=== PATIENT | female | born 1990 | race Caucasian/White ===

== ENCOUNTER → 2020-12-13 13:41 | Outpatient (BNVA) | payer BC, SELFPAY | PROVIDERS: Visit Provider Obstetrics & Gynecology | DX: N83.8 Other noninflammatory disorders of ovary, fallopian tube and broad ligament (principal); R10.2 Pelvic and perineal pain | CPT/HCPCS: 76830 ==

== ENCOUNTER 2020-12-15 07:49 | Outpatient (CLI) | payer BC, SELFPAY ==
--- NOTE | 2020-12-15 08:00 | US_ITS ---
WS: [id number] ULTRASOUND LEFT BREAST HISTORY: N63.20 - Unspecified lump in the left breast, unspecified... COMPARISON: 03/27/2018 and 09/13/2014, mammogram 03/27/2018 TECHNIQUE: 2-D and Doppler. Predominantly hypoechoic but heterogeneous nodule in the LEFT breast adjacent to the areolar has slow ly increased in size since 2014 and 2018. This is not typical for a normal lymph node. If this is an abnormal lymph node the normal central fatty hilum is being displaced and the cortex is thickened. Th ere is an additional hypoechoic nodule adjacent to the dominant mass measuring 0.9 x 0.7 x 0.5 cm. Th e adjacent soft tissue structures are being distorted. US/US breast LT complete [id number] IMPRESSION: BI-RADS: 0-Incomplete: Need additional imaging evaluation FOLLOW-UP: See Report Palpable subareolar nodule LEFT breast has slowly increased in size since 2014. This is not typical for benign lymph node. There is now an adjacent small er hypoechoic nodule. Recommend surgical excision of both of the nodules in the LEFT breast adjacent to the areola.
== END 2020-12-15 07:50 | disposition home or self-care (01) ==
PROVIDERS: Visit Provider Obstetrics & Gynecology
DX: N63.42 Unspecified lump in left breast, subareolar (principal)
CPT/HCPCS: 76641

== ENCOUNTER 2020-12-26 07:52 | Outpatient (CLI) | payer BC, SELFPAY ==
--- NOTE | 2020-12-26 07:55 | MM_ITS ---
WS: [id number] Left breast diagnostic digital mammogram, 12/26/2020 Clinical Data: R92.8 - Other abnormal and inconclusive findings on diagn... Comparison: Left mammogram, 03/27/2018, left breast ultrasound, 12/15/2020. Findings: Posterior to the left areola is a heterogeneous nodule. The border is smooth. This nodule measures 1. 3 x 2.1 cm. Inferior to the areola is a second nodule also heterogeneous measuring 0.6 x 1.3 cm. The breast tissue shows heterogeneous density. No other nodules are seen. No cysts are present. There are no secondary signs of carcinoma. MM/[place] [id number] Impression: 1. 2 heterogeneous nodules adjacent to the left areola which correspond to the nodules seen on breast ultrasound. 2. Recommend biopsy. BIRADS: 4-Suspicious Finding-Biopsy Should Be Considered FOLLOW UP: See Report The CAD box car checker was used.
== END 2020-12-26 07:53 | disposition home or self-care (01) ==
LOC: RADSHAW 07:53
PROVIDERS: Visit Provider Obstetrics & Gynecology
DX: R92.8 Other abnormal and inconclusive findings on diagnostic imaging of breast (principal); N63.20 Unspecified lump in the left breast, unspecified quadrant
CPT/HCPCS: 77065

== ENCOUNTER → 2021-01-20 15:59 | Outpatient (BNVA) | payer BC, SELFPAY | PROVIDERS: Visit Provider Surgery | DX: Z01.812 Encounter for preprocedural laboratory examination (principal); Z20.822 Contact with and (suspected) exposure to COVID-19 | CPT/HCPCS: 87635 ==

== ENCOUNTER → 2021-01-24 10:50 | Outpatient (BNVA) | payer BC, SELFPAY | PROVIDERS: Visit Provider Obstetrics & Gynecology | DX: N83.202 Unspecified ovarian cyst, left side (principal) | CPT/HCPCS: 76830 ==

== ENCOUNTER → 2021-01-26 12:09 | Outpatient (BNVA) | payer BC, SELFPAY | PROVIDERS: Visit Provider Surgery | DX: Z01.812 Encounter for preprocedural laboratory examination (principal); Z20.822 Contact with and (suspected) exposure to COVID-19 | CPT/HCPCS: 87635 ==

== ENCOUNTER 2021-01-30 07:49 | Day surgery (SDC) | payer BC, SELFPAY ==
[2021-01-27 14:29] VITALS: BMI 29.0
--- NOTE | 2021-01-30 08:03 | US_ITS ---
WS: [id number] ULTRASOUND-GUIDED LEFT BREAST NEEDLE LOCALIZATION HISTORY: left breast lump, there are 2 adjacent masses within the LEFT breast at the subareolar regio n. Procedure, risks and complications were explained to the patient. Consent is obtained. Skin is cleansed with ChloraPrep and anesthetized with 1% buffered lidocaine. Needle and guidewire pl aced to the area of concern with no complications. A single wire is placed through both lesions. Ultr asound guidance performed during the needle localization. Guidewire is left within the lesion. Guidew rosemarie secured and no complications encountered. Patient is being transported to the OR suite. Specimen radiograph is also reviewed. Both hypoechoic masses are present within the specimen. RECOMMENDATIONS: Diagnostic LEFT mammogram 6 months. US/[place] [id number] IMPRESSION: 1. Uncomplicated wire localization of 2 masses within the anterior LEFT breast at 12:00. Masses are localized with a single wire. PATHOLOGY RESULTS: Fibroadenoma. No malignancy. 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 Discussed pathology results with Dr. Clemente Kelley MD.
[2021-01-30 08:09] VITALS: BP 122/75; PULSE 80; RESP 18; TEMP 36.6; O2SAT 98
[2021-01-30] MEDS: sodium chloride 0.9% 1,000 ML 30 ML IV (08:20)
--- NOTE | 2021-01-30 08:30 | W.PM.OPSFHP ---
Same Day Surgery H&P Indication for Procedure/HPI DATE OF PROCEDURE: January 30, 2021 CHIEF COMPLAINT/INDICATIONFOR SURGICAL PROCEDURE: left breast lumpectomy PREOP DIAGNOSIS: Left breast mass PLANNED PROCEDRUE: Operation Date: 01/30/21 10:45 Proposed Procedures p Breast Biopsy Needle Localization [id number] N63.20(Left) - Gm Cervantes MD s Left breast lumpectomy(Left) - Gm Cervantes MD Medications/Allergies* Home Medications Medication Instructions Recorded Confirmed Type alprazolam 0.5 mg tablet 0.5 mg PO DAILY 11/14/20 01/30/21 History Allergies/Adverse Reactions Allergy/AdvReac Type Severity Reaction Status Date / Time No Known Allergies Allergy Verified 01/30/21 08:07 Current Medications: Generic Name Dose Route Start Last Admin Trade Name Freq PRN Reason Stop Dose Admin Sodium Chloride 1,000 mls @ 30 mls/hr 01/30/21 08:00 01/30/21 08:20 Sodium Chloride 0.9% IV 01/31/21 07:59 30 mls/hr .Q24H CHRIS Administration Pertinent History/Comorbid Conditions* Surgical History (Updated 12/27/20 @ 14:21 by Gm Cervantes MD) History of appendectomy 2002 History of 2015 Family History (Updated 11/14/20 @ 15:24 by Digna Vasquez LPN) Grandmother Breast cancer Grandmother paternal Uterine cancer Mother Stroke Grandmother maternal- Denies family history of Colon cancer Ovarian cancer Diabetes Clotting disorder Hyperlipidemia Bleeding disorder Hypertension Thyroid disease Social History Smoking and tobacco status: never smoked Alcohol intake: never Pertinent Exam Findings alert, oriented x 3 and regular rate & rhythm Recommendations Surgery/Procedure today 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
[2021-01-30 08:31] LABS: OR HCG Qualitative Urine Negative (Negative)
--- NOTE | 2021-01-30 09:14 | ANES.PREANE2 ---
Pre-Anesthetic Assessment Pre-Anesthetic Assessment: Height/Weight: Height 1.68 m Weight 81.647 kg Temp Pulse Resp BP Pulse Ox 97.9 F 80 18 122/75 98 01/30/21 08:09 01/30/21 08:09 01/30/21 08:09 01/30/21 08:09 01/30/21 08:09 Preop Diagnosis: Left breast mass Proposed Procedure: Operation Date: 01/30/21 10:45 Proposed Procedures p Breast Biopsy Needle Localization [id number] N63.20(Left) - Gm Cervantes MD s Left breast lumpectomy(Left) - Gm Cervantes MD Familial anesthetic complications: none Was Beta Kiana taken within 24 hours: N/A Was Clonidine taken within 24 hours: N/A Last intake: Intake Last Liquid Date 01/29/21 Last Liquid Time 23:00 Last Solid Date 01/29/21 Last Solid Time 20:00 Social: Social History: No alcohol and No tobacco Exam: Pre-Anes Outpt Exam: alert, oriented x 3, clear to auscultation bilaterally and regular rate & rhythm Airway: Cervical ROM: WNL MP: 2 Dentition: Partials Anesthetic Plan: ASA status: 1 Anesthesia: General Risk of > 500 ml blood loss (7ml/kg in children): No Meds/Allergies Current Medications: Current Medications Generic Name Dose Route Start Last Admin Trade Name Freq PRN Reason Stop Dose Admin Sodium Chloride 1,000 mls @ 30 ml s/hr 01/30/21 08:00 01/30/21 08:20 Sodium Chloride 0.9% IV 01/31/21 07:59 30 mls/hr .Q24H CHRIS Administration PFSH Anesthesia PFSH: Surgical History (Updated 12/27/20 @ 14:21 by Gm Cervantes MD) History of appendectomy 2002 History of 2015 Family History (Updated 11/14/20 @ 15:24 by Digna Vasquez LPN) Grandmother Stroke maternal- Mother Uterine cancer Grandmother Breast cancer paternal Denies family history of Colon cancer Ovarian cancer Diabetes Clotting disorder Hyperlipidemia Bleeding disorder Hypertension Thyroid disease Social History (Updated 11/14/20 @ 15:24 by Digna Vasquez LPN) Smoking and tobacco status: never smoked Alcohol intake: never Data Anesthesia Other Labs: Laboratory Results - last 48 hr 01/30/21 08:29 Urine HCG, Qual Negative Cardiac Studies: No Data to Display
--- NOTE | 2021-01-30 09:15 | US_ITS ---
WS: [id number] ULTRASOUND-GUIDED LEFT BREAST NEEDLE LOCALIZATION HISTORY: left breast lump, there are 2 adjacent masses within the LEFT breast at the subareolar regio n. Procedure, risks and complications were explained to the patient. Consent is obtained. Skin is cleansed with ChloraPrep and anesthetized with 1% buffered lidocaine. Needle and guidewire pl aced to the area of concern with no complications. A single wire is placed through both lesions. Ultr asound guidance performed during the needle localization. Guidewire is left within the lesion. Guidew rosemarie secured and no complications encountered. Patient is being transported to the OR suite. Specimen radiograph is also reviewed. Both hypoechoic masses are present within the specimen. RECOMMENDATIONS: Diagnostic LEFT mammogram 6 months. US/US breast surgical specimen IMPRESSION: 1. Uncomplicated wire localization of 2 masses within the anterior LEFT breast at 12:00. Masses are localized with a single wire. PATHOLOGY RESULTS: Fibroadenoma. No malignancy. 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 Discussed pathology results with Dr. Clemente Kelley MD.
[2021-01-30] MEDS: lidocaine 1% INJ 20 mL INJECTION (10:56)
[2021-01-30 11:13] VITALS: BP 109/65; PULSE 91; RESP 19; TEMP 36.8; O2SAT 100
[2021-01-30 11:15] VITALS: BP 109/65; PULSE 83; RESP 19; O2SAT 100
[2021-01-30 11:20] VITALS: BP 103/68; PULSE 68; RESP 18; O2SAT 100
[2021-01-30 11:25] VITALS: BP 105/66; PULSE 66; RESP 18; TEMP 37; O2SAT 100
[2021-01-30 11:30] VITALS: BP 110/71; PULSE 71; RESP 18; TEMP 36.9; O2SAT 100
[2021-01-30] MEDS: HYDROcodone-acetaminophen 5-325 mg Tablet 1 TAB PO (11:40)
--- NOTE | 2021-01-30 11:48 | PM.OP ---
Operative Report Date of procedure: January 30, 2021 Pre-op Diagnosis: BI-RADS 4 lesion 12 o'clock position x2 left breast Post-op diagnosis: same Procedure Done: Wire localization lumpectomy left breast Pathology: Left breast mass 12 o'clock position, short stitch superior, long stitch lateral Surgeon: Gm Cervantes Anesthesia: General Condition: stable Disposition: PACU Procedure: The wire localization of the mammographic abnormality was performed by the radiologist under ultrasound guidance and the patient was transferred to operating room and placed under MAC after IV antibiotic had been administered. The left breast was prepped and draped in a manner . A curvilinear incision was made over the areolar margin at 12'o clock, subcutaneous tissue was divided and skin flaps were raised superiorly and inferiorly. The localization wire was grasped through the incision and using electrocautery the wire along with the breast tissue containing mammographic abnormality was dissected free from the surrounding tissue. Using 2-0 silk suture, short stitch was placed superiorly and a long stitch was placed laterally.The wound was irrigated with saline, hemostasis ensured with electrocautery and subcutaneous tissues approximated using 3-0 running Vicryl suture and skin was closed using running subcuticular 4-0 Monocryl sutures and Dermabond. 1% lidocaine with 0.5% Marcaine was infiltrated at the surgical site. Fluffs were used for pressure dressing. Patient was transferred to recovery room and stable condition The lumpectomy specimens were sent to mammography to obtain radiological confirmation of complete excision of the mammographic abnormality.
--- NOTE | 2021-01-30 13:50 | ANE.PACU2 ---
Inpatient post-anesthesia follow up: Airway intact: Yes Vital signs: Temperature 98.4 F Pulse Rate 71 Respiratory Rate 18 Blood Pressure 110/71 Pulse Oximetry 100 Oxygen Delivery Me thod Room Air Oxygen Flow Rate Fraction of Inspir ed Oxygen Hydration adequate: Yes Nausea and vomiting: No Pain level: 2 Mental status: Baseline
== END 2021-01-30 12:06 | disposition home or self-care (01) ==
PROVIDERS: Anesthesiology; Visit Provider Surgery
PROC: (CPT 19301; principal; 2021-01-30 10:40)
DX: N63.20 Unspecified lump in the left breast, unspecified quadrant (principal); D24.2 Benign neoplasm of left breast; Z80.3 Family history of malignant neoplasm of breast
CPT/HCPCS: 19301; 19285; 81025; 84703; 88307; C1889; J0690; J1100; J1200; J1885; J2250; J2405; J2704; J3010; J3490; J7030

== ENCOUNTER → 2021-07-03 09:07 | Outpatient (BNVA) | payer BC, SELFPAY | PROVIDERS: Visit Provider Family Medicine | DX: N30.90 Cystitis, unspecified without hematuria (principal); R10.2 Pelvic and perineal pain; G89.29 Other chronic pain | CPT/HCPCS: 81000 ==

== ENCOUNTER 2023-07-30 05:24 | Inpatient (IN) | payer OTHER, SELFPAY ==
--- NOTE | 2023-07-17 09:28 | ANES.PREANE2 ---
Pre-Anesthetic Assessment Height/Weight: Height 1.68 m Operation Date: 07/30/23 07:20 Proposed Procedures p Section 65411(Not Applicable) - Chip Adorno MD Familial anesthetic complications: None Social No alcohol and No tobacco Exam alert, oriented x 3, clear to auscultation bilaterally and regular rate & rhythm Anesthetic Plan ASA status: 2 Anesthesia: Regional (specify below) Risk of > 500 ml blood loss (7ml/kg in children): Yes, adequate IV access and fluids planned Medications/Allergies Home Medications Medication Instructions Recorded Confirmed Last Taken Type nitrofurantoin macrocrystal 100 mg 100 mg PO BID 7 days #14 caps 07/03/21 07/03/21 Unknown Rx capsule Allergies Allergy/AdvReac Type Severity Reaction Status Date / Time No Known Allergies Allergy Verified 07/03/21 08:20 [facility] Anesthesia Surgical History History of appendectomy 2002 History of 2016 Status post left breast lumpectomy (01/30/21) Family History Grandmother Stroke maternal- Mother Uterine cancer Grandmother Breast cancer paternal Denies family history of Colon cancer Ovarian cancer Diabetes Clotting disorder Hyperlipidemia Bleeding disorder Hypertension Thyroid disease Social History Smoking and tobacco/nicotine status: never used tobacco/nicotine Alcohol intake: never Substance/Drug Use: never Data Anesthesia Cardiac Studies: No Data to Display
[2023-07-30] VITALS (88 sets, daily range): BP systolic 93–123; BP diastolic 48–78; PULSE 51–112; RESP 14–18; TEMP 35.4–36.4; O2SAT 92–100; BMI 34.1
[2023-07-30 06:01] LABS: Basophils % 0.2 %; Eosinophils # 0.1 10^3/uL (0.0-0.8); Eosinophils % 0.7 %; Hematocrit 35.3 % (36-47); Lymphocytes # 2.9 10^3/uL (0.8-4.8); Lymphocytes % 27.9 %; Mean Corpuscular HGB Conc 32.9 g/dL (30-55); Mean Corpuscular Hemoglobin 27.5 pg (27-33); Mean Corpuscular Volume 83.6 fl (85-98); Mean Platelet Volume 11.2 fL (7.4-10.4); Monocytes # 0.8 10^3/uL (0.2-0.9); Monocytes % 7.8 %; Neutrophils # 6.51 10^3/uL (1.8-7.7); Neutrophils % 63.1 %; Nucleated Red Blood Cells % 0 %; Platelet Count 318 10^3/cmm (157-399); Red Blood Count 4.22 10^6/uL (3.85-5.65); Red Cell Distribution Width 13.6 % (12.1-15.1)
--- NOTE | 2023-07-30 07:11 | P.HP_ITS ---
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 Her is otherwise unremarkable. She has had no other complications. Her blood type is B+. Her antibody screen is negative. She is GBS negative. She passed her glucose screen. The remainder of her infectious disease profile is within normal limits. Present Details : 2 Para: 1 Labs Rubella: Immune RPR: Negative GBS: Negative Medications/Allergies Home Medications Medication Instructions Recorded Confirmed Last Taken Type docusate sodium 100 mg capsule 100 mg PO BID #14 caps 07/31/23 Unknown Rx hydrocodone 5 mg-acetaminophen 325 1 tab PO Q6H PRN Moderate To 07/31/23 Unknown Rx mg tablet Severe Pain #28 tabs ibuprofen 800 mg tablet 800 mg PO TID #45 tabs 07/31/23 Unknown Rx vits no.130-ferrous fum 1 tab PO DAILY #90 tabs 07/31/23 Unknown Rx 27 mg iron-folic acid 800 mcg tablet ( Vitamin) Allergies Allergy/AdvReac Type Severity Reaction Status Date / Time No Known Allergies Allergy Verified 07/03/21 08:20 PFSH [employer]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 PFSH: Surgical History (Updated 07/30/23 @ 07:15 by Chip Adorno MD) Status post left breast lumpectomy (01/30/21) History of 2016 History of appendectomy 2002 Family History Grandmother Stroke maternal- Mother Uterine cancer Grandmother Breast cancer paternal Denies family history of Colon cancer Ovarian cancer Diabetes Clotting disorder Hyperlipidemia Bleeding disorder Hypertension Thyroid disease Social History Smoking and tobacco/nicotine status: never used tobacco/nicotine Alcohol intake: never Substance/Drug Use: never Other Female Reproductive History: Hx Age of Menarche: 12 History History History 2 2 Term 1 0 Miscarriages/Ectopic 0 Living Children 1 Vitals/I&O/Wt Last Vital Signs Pulse 71 07/30/23 07:08 BP 110/69 07/30/23 07:08 O2 Del Method Room Air 07/30/23 05:15 Weight last 48 hrs Weight 199 lb Weight 199 lb Physical Exam 2 Const: COMMON NORMALS: patient oriented x3 and alert HENMT: COMMON NORMALS: moist oral mucous membranes HEAD & SCALP: normal to inspection Chest: COMMONS NORMALS: normal inspection of the chest Resp: COMMON NORMALS: clear to auscultation bilaterally AUSCULTATION: clear to auscultation bilaterally Cardio: COMMON NORMALS: regular rate and regular rhythm RATE: regular rate RHYTHM: regular rhythm GI: INSPECTION: Yes normal to inspection and Yes other (Gravid) Extremity: COMMON NORMALS: normal to inspection GENERAL: Yes edema (Trace) Neuro: COMMON NORMALS: patient oriented x3, moves all extremities and no sensory deficits noted SENSORIUM/ORIENTATION: Yes alert Psych: COMMON NORMALS: mental status grossly normal Skin: COMMON NORMALS: no rashes or lesions noted GENERAL SKIN EXAM: no rashes or lesions noted Data 07/30/23 20:48 Results Labs OB ([facility]): 2 Blood Type B Positive 07/30/23 Antibody Screen Negative 07/30/23 Hct 32.8 % (36-47) L 07/30/23 Hgb 10.60 g/dL (11.27-16.99) L 07/30/23 Rho(D) Type Rh positive 07/30/23 Plt Count 259 10^3/cmm (157-399) 07/30/23 A&P Assessment and plan (1) 39 weeks gestation of : (2) History of section: We will proceed with a scheduled repeat section. We have discussed the risks of bleeding, infection, and damage to intra-abdominal organs. She has no further questions and wishes to proceed. Attestations 2 Medical Necessity Statement*: Routine and post care Coding Level of Care Code Acute Code for Chg Fwd Diagnoses 39 weeks gestation of Z3A.39 History of section Z98.891
--- NOTE | 2023-07-30 07:25 | P.ANESASSM_ITS ---
Pre-Anesthetic Assessment Height/Weight: Height 1.63 m Weight 90.265 kg Pulse BP O2 Del Method 71 110/69 Room Air 07/30/23 07:08 07/30/23 07:08 07/30/23 05:15 Preop Diagnosis: previous c/s Operation Date: 07/30/23 07:20 Proposed Procedures p Section 76269(Not Applicable) - Chip Adorno MD Familial anesthetic complications: none Was Beta Kiana taken within 24 hours: N/A Was Clonidine taken within 24 hours: N/A Last intake: Intake Last Liquid Date 07/29/23 Last Liquid Time 23:00 Last Solid Date 07/29/23 Last Solid Time 17:00 Social No alcohol and No tobacco Exam alert, oriented x 3, clear to auscultation bilaterally and regular rate & rhythm Airway Mallampati: Class II Dentition: full History/ROS No significant history except as noted Pulmonary None reported CV/HEM None reported None reported Hepatic None reported GI None reported Metabolic Thyroid Disease Musc/skel None reported Neuropsych None reported Anesthetic Plan ASA status: 2 Anesthesia: Anesthesia Evaluation and Regional (specify below) (spinal) Risk of > 500 ml blood loss (7ml/kg in children): Yes, adequate IV access and fluids planned Medications/Allergies Allergies Allergy/AdvReac Type Severity Reaction Status Date / Time No Known Allergies Allergy Verified 07/03/21 08:20 [facility] Anesthesia Surgical History (Updated 07/30/23 @ 07:15 by Chip Adorno MD) Status post left breast lumpectomy (01/30/21) History of 2016 History of appendectomy 2002 Family History Grandmother Stroke maternal- Mother Uterine cancer Grandmother Breast cancer paternal Denies family history of Colon cancer Ovarian cancer Diabetes Clotting disorder Hyperlipidemia Bleeding disorder Hypertension Thyroid disease Social History Smoking and tobacco/nicotine status: never used tobacco/nicotine Alcohol intake: never Substance/Drug Use: never Female Reproductive History : 2 Data Anesthesia 07/30/23 05:50 Short CBC 07/30/23 Range/Units 05:50 WBC 10.30 (3.29-11.43) 10^3/uL Hgb 11.60 (11.27-16.99) g/dL Hct 35.3 L (36-47) % MCV 83.6 L (85-98) fl Plt Count 318 (157-399) 10^3/cmm Neut % (Auto) 63.1 % Neut # (Auto) 6.51 (1.8-7.7) 10^3/uL Cardiac Studies: 2 No Data to Display
[2023-07-30] MEDS: citric acid-sodium citrate 30 mL UDC PO (07:33)
[2023-07-30] MEDS: metoclopramide 5 mg/mL SDV 2 mL 10 MG IVP ×2 (07:33→11:10)
[2023-07-30] MEDS: famotidine 20 mg/2 mL INJ IVP (07:34)
[2023-07-30] MEDS: BUPivacaine 0.5% INJ 30 mL INJECTION (08:40)
--- NOTE | 2023-07-30 09:20 | P.OP_ITS ---
Operative Report Date of procedure: July 30, 2023 Pre-op diagnosis: 32-year-old 2 para 1-0-0-1 at 39 weeks estimated gestational age with a history of presenting for repeat section Post-op diagnosis: Same Procedure done: Repeat low-transverse section Specimens removed/disposition: 1. Female with a weight of 6 pounds 12 ounces and Apgars of 8 and 9 2. Placenta with a three-vessel cord delivered intact Pathology: None Surgeon: Chip Adorno MD Estimated blood loss (mL): 600 Procedure: The patient was brought back to the operating room where she was prepped and draped in usual sterile fashion. Anesthesia was found to be adequate. A lower transverse skin incision was then made with a #10 blade. I then dissected down to the underlying subcutaneous tissue until arriving at the prerectal fascia. The fascia was then nicked with the scalpel bilaterally. The fascial incisions were then carried laterally with Grullon scissors. Attention was then turned to the superior aspect of the incision which was grasped with kochers and tented up away from the underlying rectus abdominis muscles. The muscles were then dissected away from the fascia manually, and later with Grullon scissors. Attention was then turned to the inferior aspect of the incision, and the fascia was dissected away from the underlying muscle in similar fashion. The rectus abdominis muscles were then spread manually. The peritoneum was entered manually. Excellent visualization of the uterus was noted. A lower transverse uterine incision was then made with a #10 blade. Upon arriving at the intrauterine cavity, the uterine incision was then extended manually. The infant was noted to be in vertex position. The baby was delivered without difficulty. After delivery of the head, the mouth and nose were suctioned at the site of the incision. There was no meconium. There was no nuchal cord. The baby was then completely delivered and placed on the abdomen. The cord was cut and clamped. The baby was then handed to the waiting nurse. The placenta was removed intact. The uterus was externalized. The intrauterine cavity was c leansed of any remaining debris. The uterine incision was reapproximated in 2 layers. The first layer was performed with 0 Vicryl in a running locked stitch. The second layer was an imbricating stitch also using 0 Vicryl. The uterus was replaced into the abdomen. The peritoneum was then irrigated with warm saline. I reexamined the uterine incision and found it to be hemostatic. The rectus abdominis muscles were then reapproximated using 0 Vicryl in a running stitch. The fascia was then reapproximated using 0 Vicryl in running stitch. The skin was reapproximated using diann. A sterile dressing was placed. All counts were correct x2. Both the mother and baby were in stable condition.
--- NOTE | 2023-07-30 10:00 | ANE.PACU2 ---
Inpatient post-anesthesia follow up: Airway intact: Yes Vital signs: Temperature 96.8 F Pulse Rate 77 Respiratory Rate 14 Blood Pressure 97/55 Pulse Oximetry 97 Oxygen Delivery Me thod Room Air Oxygen Flow Rate Fraction of Inspir ed Oxygen Hydration adequate: Yes Nausea and vomiting: No Pain level: 1 Mental status: Baseline
[2023-07-30] MEDS: dextrose 5%-lactated ringers 1,000 ML 999 ML IV (13:28)
[2023-07-30] MEDS: dextrose 5%-lactated ringers 1,000 ML 125 ML IV ×2 (14:30→17:47)
[2023-07-30] MEDS: ketorolac 30 mg/mL INJ IVP ×2 (15:33→22:40)
[2023-07-30] MEDS: ondansetron 2 mg/ML SDV 2 mL 4 MG IVP (15:34)
[2023-07-30] MEDS: promethazine 25 mg/mL SDV 1 mL IM (17:47)
[2023-07-30] MEDS: ferrous sulfate EC 325 mg Tablet PO (19:23)
[2023-07-30] MEDS: docusate sodium 100 mg Capsule PO (19:23)
[2023-07-30 20:54] LABS: Hematocrit 32.8 % (36-47); Mean Corpuscular HGB Conc 32.3 g/dL (30-55); Mean Corpuscular Hemoglobin 27.6 pg (27-33); Mean Corpuscular Volume 85.4 fl (85-98); Platelet Count 259 10^3/cmm (157-399); Red Blood Count 3.84 10^6/uL (3.85-5.65); Red Cell Distribution Width 13.7 % (12.1-15.1); White Blood Count 15.74 10^3/uL (3.29-11.43)
[2023-07-31 04:23] VITALS: BP 97/55; PULSE 77
[2023-07-31 04:24] VITALS: TEMP 36
[2023-07-31 04:30] VITALS: RESP 14
[2023-07-31] MEDS: ketorolac 30 mg/mL INJ IVP (04:48)
--- NOTE | 2023-07-31 07:34 | P.DS_ITS ---
Discharge Providers [employer] Date of Admission: 07/30/23 05:24 Date of Discharge: 07/31/23 Attending Provider at Admission: Chip Adorno MD Attending Provider at Discharge: Chip Adorno MD Primary Care Provider: Chip Adorno MD Diagnoses at Discharge Discharge Diagnosis (1) 39 weeks gestation of : Status: Acute (2) History of section: Status: Acute Reason for Visit Reason for Visit: Epi Consult Hospital Course Hospital Course The patient presented to the hospital for a repeat scheduled . She had a lower transverse section without complications. Her course was remarkable for having some nausea and vomiting for which she was given Zofran, Reglan, and ultimately promethazine IM. After the promethazine she had no further problems. She passed flatus. Her pain is been well- controlled. Her bleeding has been within normal limits. Information Peripartum Data: Delivery Method: Physical Exam Narrative: She is in no acute distress Lungs are clear auscultation bilaterally Her heart has a regular rate and rhythm Her fundus is below the umbilicus and firm Her dressing is clean, dry and intact Her extremities have trace edema Urinary Catheter Management: Larson Latex: Cath Placed During This Visit: yes, but has since been removed by the nurse Reason for Continuing Indwelling Catheter: Decision to DC Catheter Urinary Catheter Date of Insertion: 07/30/23 Urinary Catheter Time of Insertion: 08:20 Date Urinary Catheter Removed: 07/30/23 Time Urinary Catheter Discontinued: 22:35 History History History 2 Term 1 0 Miscarriages/Ectopic 0 Living Children 1 Discharge Data Studies Completed and Pending Laboratory Results WBC 15.74 10^3/uL (3.29-11.43) H 07/30/23 20:48 RBC 3.84 10^6/uL (3.85-5.65) L 07/30/23 20:48 Hgb 10.60 g/dL (11.27-16.99) L 07/30/23 20:48 Hct 32.8 % (36-47) L 07/30/23 20:48 MCV 85.4 fl (85-98) 07/30/23 20:48 MCH 27.6 pg (27-33) 07/30/23 20:48 MCHC 32.3 g/dL (30-55) 07/30/23 20:48 RDW 13.7 % (12.1-15.1) 07/30/23 20:48 Plt Count 259 10^3/cmm (157-399) 07/30/23 20:48 MPV 11.0 fL (7.4-10.4) H 07/30/23 20:48 Neut % (Auto) 63.1 % 07/30/23 05:50 Lymph % (Auto) 27.9 % 07/30/23 05:50 [place] % (Auto) 7.8 % 07/30/23 05:50 Eos % (Auto) 0.7 % 07/30/23 05:50 Baso % (Auto) 0.2 % 07/30/23 05:50 Neut # (Auto) 6.51 10^3/uL (1.8-7.7) 07/30/23 05:50 Lymph # (Auto) 2.9 10^3/uL (0.8-4.8) 07/30/23 05:50 [place] # (Auto) 0.8 10^3/uL (0.2-0.9) 07/30/23 05:50 Eos # (Auto) 0.1 10^3/uL (0.0-0.8) 07/30/23 05:50 Baso # (Auto) 0.0 10^3/uL (0.0-0.1) 07/30/23 05:50 Nucleated RBC % (auto) 0 % 07/30/23 05:50 Nucleated RBCs # 0.0 /100WBC 07/30/23 05:50 Blood Type B Positive 07/30/23 05:50 Rho(D) Type Rh positive 07/30/23 05:50 Antibody Screen Negative 07/30/23 05:50 Vitals Last Vital Signs Temp 96.8 F L 07/31/23 04:24 Pulse 77 07/31/23 04:23 Resp 14 07/31/23 04:30 BP 97/55 07/31/23 04:23 Pulse Ox 97 07/30/23 13:40 O2 Del Method Room Air 07/30/23 09:45 Results Labs OB ([facility]): Blood Type B Positive 07/30/23 Antibody Screen Negative 07/30/23 Hct 32.8 % (36-47) L 07/30/23 Hgb 10.60 g/dL (11.27-16.99) L 07/30/23 Rho(D) Type Rh positive 07/30/23 Plt Count 259 10^3/cmm (157-399) 07/30/23 Discharge Plan Discharge Patient Disposition: Home Condition: Stable Prescriptions: New ibuprofen 800 mg Tablet 800 mg PO TID Qty: 45 0RF hydrocodone-acetaminophen 5-325 mg Tablet 1 tab PO Q6H PRN (Reason: Moderate To Severe Pain) Qty: 28 0RF docusate sodium 100 mg Capsule 100 mg PO BID Qty: 14 0RF Vitamin 27 mg iron- 800 mcg Tablet 1 tab PO DAILY Qty: 90 0RF Discharge Orders: Discharge Order (Routine); Ordered 07/31/23 Ordered By: Chip Adorno Referrals: Chip Adorno MD [Primary Care Provider] - 4-7 days (Please make an appointment for 6 weeks as well. Thank you) Discharge Diet: Usual diet Discharge Activity: Limit activity as instructed Patient Instructions: Depression (DC), Bleeding (DC), Preeclampsia and Eclampsia After Delivery (GEN), Hemorrhage (DC), OB - Kyree/Timi, OB Discharge Report, OB Food/Drug Interaction Guide, Opioid Safety, OB Home Care, OB Proud Parent Packet Discharge Attestations [employer] Time Spent in Discharge Care*: less than 30 min Coding Level of Care Code Acute Code for Chg Fwd Diagnoses 39 weeks gestation of Z3A.39 History of section Z98.891
[2023-07-31] MEDS: acetaminophen 325 mg Tablet 650 MG PO (09:43)
[2023-07-31] MEDS: ferrous sulfate EC 325 mg Tablet PO (09:44)
[2023-07-31] MEDS: docusate sodium 100 mg Capsule PO (09:44)
[2023-07-31] MEDS: PRENATAL VIT NO.130/IRON/FOLIC 1 EACH TABLET PO (09:44)
[2023-07-31 10:35] VITALS: BP 111/61; PULSE 88
[2023-07-31 11:21] VITALS: BP 111/61; PULSE 88; RESP 17; TEMP 36.8
== END 2023-07-31 11:23 | disposition home or self-care (01) | DRG 788 ==
PROVIDERS: Admitting Provider Family Medicine; PCP Family Medicine; Visit Provider Family Medicine
PROC: 10D00Z1 Extraction of Products of Conception, Low, Open Approach (ICD-10-PCS; CPT 59514; principal; 2023-07-30 07:00)
DX: O34.211 Maternal care for low transverse scar from previous cesarean delivery (principal); N85.8 Other specified noninflammatory disorders of uterus; Z3A.39 39 weeks gestation of pregnancy; Z37.0 Single live birth
CPT/HCPCS: 36415; 51702; 59409; 85025; 85027; 86850; 86900; 96372; 96374; J1885; J2274; J2405; J2550; J2765; J3010; J3490; J7121